=== PATIENT | female | born 1995 ===

== ENCOUNTER 2020-12-16 08:20 | Inpatient (IN) | payer OTHER ==
[2020-12-16 10:04] VITALS: BMI 36.6
[2020-12-16] MEDS ORDERED: DINOPROSTONE 10 MG VAGINAL SUPPOSITORY VG ONE (10:15)
[2020-12-16] MEDS: DEXTROSE 5%-LACTATED RINGERS 1,000 ML IV SCH ×2 (10:45→22:40)
[2020-12-16] MEDS ORDERED: OXYTOCIN 30 UNITS in 0.9% NS 30 UNIT/500 ML INFUS.BAG IVPB ONE (20:01)
[2020-12-16] MEDS ORDERED: OXYTOCIN 30 UNITS in 0.9% NS 30 UNIT/500 ML INFUS.BAG IVPB SCH (20:15)
[2020-12-16 22:23] LABS: INR 0.94 (0.83-1.09); PROTHROMBIN TIME (PATIENT) 11.4 SEC (9.7-13.0)
[2020-12-16 22:26] LABS: ACTIVATED PTT 25.2 SECONDS (25.2-36.5)
[2020-12-17] MEDS ORDERED: BUTORPHANOL TARTRATE 1 MG/ML VIAL IVPB ONE (00:06)
[2020-12-17] MEDS ORDERED: PROMETHAZINE HCL 25 MG/1 ML VIAL IVPB ONE (00:06)
[2020-12-17] MEDS ORDERED: BUTORPHANOL TARTRATE 2 MG/ML VIAL ONE (00:13)
[2020-12-17] MEDS ORDERED: PCA PUMP NR ONE ×2 (05:48→15:43)
[2020-12-17] MEDS ORDERED: FENTANYL/BUPIVACAINE/NS/PF - PCEA - 50 ML DISP.SYRIN EP ONE ×2 (05:49→10:13)
[2020-12-17] MEDS ORDERED: BUPIVACAINE HCL/PF 0.25% (2.5MG/ML) 10 ML VIAL ONE (05:50)
[2020-12-17] MEDS ORDERED: SODIUM CHLORIDE 1,000 ML IV STA (05:52)
[2020-12-17] MEDS: FENTANYL/BUPIVACAINE/NS/PF - PCEA - 50 ML DISP.SYRIN EP SCH ×2 (06:10→10:15)
[2020-12-17] MEDS ORDERED: NALOXONE HCL 0.4 MG/ML VIAL IVPUSH PRN (06:15)
[2020-12-17] MEDS: DEXTROSE 5%-LACTATED RINGERS 1,000 ML IV SCH (07:51)
[2020-12-17] MEDS ORDERED: OXYTOCIN 20 UNITS in 0.9% NS 20 UNIT/1,000 ML INFUS.BAG IV ONE (13:16)
[2020-12-17] MEDS ORDERED: LIDOCAINE HCL 1% PRESERVATIVE FREE - 30ML VIAL ONE (13:17)
[2020-12-17] MEDS ORDERED: BENZOCAINE 28 GM HEMORRHOIDAL OINTMENT TP PRN (14:18)
[2020-12-17] MEDS ORDERED: BENZOCAINE 20% 57 GM BOTTLE TP PRN (14:18)
[2020-12-17] MEDS ORDERED: IBUPROFEN 600 MG TABLET (FP) PO PRN (14:18)
[2020-12-17] MEDS ORDERED: WITCH HAZEL 50% (TUCKS) 40 PAD/JAR PAD TP PRN (14:18)
[2020-12-17] MEDS ORDERED: ACETAMINOPHEN 325 MG TABLET (FP) PO PRN (14:18)
[2020-12-17] MEDS ORDERED: OXYTOCIN 20 UNITS in 0.9% NS 20 UNIT/1,000 ML INFUS.BAG IV SCH (14:30)
[2020-12-17 14:37] LABS: CORD BASE EXCESS -6.3 mmol/L (0-2); CORD HCO3 19.3 mmHg (20-29); CORD pH 7.313 (7.14-7.44)
[2020-12-18 07:42] LABS: BASO % 0.3 % (0-2.0); EOS % 0.4 % (0-4.5); HEMATOCRIT 32.3 % (32.4-45.2); HEMOGLOBIN 11.4 GM/dL (10.7-15.3); LYMPH % 16.4 % (8-40); MCH 28.1 pg (25.7-33.7); MCHC 35.3 g/dl (32.0-36.0); MEAN CELL VOLUME 79.6 fl (80-96); MEAN PLT VOLUME 8.2 fl (7.5-11.1); MONO % 6.4 % (3.8-10.2); NEUT % 76.5 % (42.8-82.8); PLATELET COUNT 224 10^3/uL (134-434); RBC 4.06 M/mm3 (3.60-5.2); RDW 15.3 % (11.6-15.6); WHITE BLOOD COUNT 18.1 K/mm3 (4.0-10.0)
[2020-12-18] MEDS: PRENATAL VITAMINS W/ FOLIC ACID TABLET (FP) PO SCH (10:07)
[2020-12-18] MEDS ORDERED: SENNOSIDES/DOCUSATE COMBO (SENNA PLUS) TABLET (UD) PO PRN (22:00)
[2020-12-19] MEDS: PRENATAL VITAMINS W/ FOLIC ACID TABLET (FP) PO SCH (09:59)
[2020-12-19 10:00] VITALS: BP 110/66; PULSE 100; TEMP 97.9
== END 2020-12-19 11:20 | disposition home or self-care (01) | DRG 560 ==
LOC: JLDR 08:20 → J3W 12-17 16:56
PROVIDERS: ADMIT Obstetrics & Gynecology Maternal & Fetal Medicine; ATTEND Obstetrics & Gynecology Maternal & Fetal Medicine
PROC: 3E0P7VZ Introduction of Hormone into Female Reproductive, Via Natural or Artificial Opening (ICD-10-PCS; 2020-12-16)
PROC: 10E0XZZ Delivery of Products of Conception, External Approach (ICD-10-PCS; principal; 2020-12-17)
PROC: 10907ZC Drainage of Amniotic Fluid, Therapeutic from Products of Conception, Via Natural or Artificial Opening (ICD-10-PCS; 2020-12-17)
PROC: 3E033VJ Introduction of Other Hormone into Peripheral Vein, Percutaneous Approach (ICD-10-PCS; 2020-12-17)
DX: O26.23 Pregnancy care for patient with recurrent pregnancy loss, third trimester (principal); Z37.0 Single live birth; O99.12 Other diseases of the blood and blood-forming organs and certain disorders involving the immune mechanism complicating childbirth; D68.59 Other primary thrombophilia; O70.0 First degree perineal laceration during delivery; Z3A.39 39 weeks gestation of pregnancy
CPT/HCPCS: 36415; 36600; 59409; 82803; 85025; 85610; 85730; 86780; 86850; 86900; 86901; 88307-TC